=== PATIENT | female | born 1950 ===

== ENCOUNTER → 2016-04-24 | Outpatient (CLI) | payer MEDICARE, MEDICAID | LOC: LFPA 10:20 | DX: R30.0 Dysuria (principal); R74.8 Abnormal levels of other serum enzymes ==

== ENCOUNTER → 2016-05-15 | Outpatient (CLI) | payer MEDICARE, MEDICAID ==
[2016-05-15 15:05] LABS: PROTIME 10.7 SECONDS (9.6-11.1)
== END | disposition disaster alternative care site (69) ==
LOC: LGSMG 14:39
PROVIDERS: Internal Medicine Gastroenterology
DX: B18.2 Chronic viral hepatitis C (principal)